=== PATIENT | female | born 1955 | race Caucasian/White ===

== ENCOUNTER 2023-05-30 12:35 | Emergency (ER) | payer MEDICARE, MEDICAID ==
[~2023-05-30] VITALS: Ht 154.9 cm; Wt 57.0 kg
[2023-05-30] MEDS: TETRACAINE 0.5% OPHTH DROPS 4ML LEFTEYE ONE (13:15)
[2023-05-30] MEDS: ACETAMINOPHEN 325MG TABLET PO ONE (15:07)
[2023-05-30] MEDS: ACETAZOLAMIDE 500MG ER CAPSULE PO ONE (15:40)
[2023-05-30] MEDS: BRIMONIDINE 0.2% OPHTH DROPS 5ML RIGHTEYE ONE (15:40)
[2023-05-30] MEDS: TIMOLOL MALEATE 0.5% OPHTH DROPS 5ML RIGHTEYE SCH (15:49)
[2023-05-30 17:45] LABS: BASOPHILS % 1.1 % (0.0-2.0); EOSINOPHILS % 1.6 % (0.0-5.0); HEMATOCRIT. 37.9 % (36.0-48.0); HEMOGLOBIN. 12.5 g/dL (12.0-16.0); LYMPHOCYTES % 31.8 % (20.0-50.0); MEAN CORPUSCULAR HEMOGLOBIN 28.8 pg (28.0-32.0); MEAN CORPUSCULAR HGB CONC 33.1 g/dL (31.0-37.0); MEAN CORPUSCULAR VOLUME 87.1 fL (81.0-99.0); MEAN PLATELET VOLUME 8.9 fl (7.4-10.4); MONOCYTES % 9.9 % (2.0-8.0); NEUTROPHILS % 55.6 % (40.0-76.0); PLATELET 229 x1000/uL (130-400); RED BLOOD CELL COUNT 4.35 mill/uL (4.2-5.4); RED CELL DISTRIBUTION WIDTH 14.4 % (11.6-14.6); WHITE BLOOD COUNT 5.7 x1000/uL (4.5-11.0)
[2023-05-30] MEDS ORDERED: ACET500C47 MT (17:49)
[2023-05-30] MEDS ORDERED: BRIM5DRO6 RIGHTEYE (17:49)
[2023-05-30] MEDS ORDERED: TIMO5DRO40 RIGHTEYE (17:49)
[2023-05-30 18:09] LABS: ALANINE AMINOTRANSFERASE 17 IU/L (10-49); ALBUMIN 4.6 g/dL (3.2-4.8); ASPARTATE AMINOTRANSFERASE 24 IU/L (<34); BILIRUBIN TOTAL 0.6 mg/dL (0.1-1.0); CALCIUM 9.3 mg/dL (8.7-10.4); CARBON DIOXIDE 26 mEq/L (21-32); CHLORIDE 105 mEq/L (98-107); CREATININE 0.8 mg/dL (0.6-1.0); GLUCOSE 184 mg/dL (70-105); POTASSIUM 4.1 mEq/L (3.5-5.1); PROTEIN TOTAL 7.9 g/dL (6.0-8.3); SODIUM 137 mEq/L (136-145); UREA NITROGEN BLOOD 13 mg/dL (9-23)
[2023-05-30 18:22] VITALS: BP 135/77; PULSE 82; RESP 18; TEMP 98.7
== END 2023-05-30 18:29 | disposition home or self-care (01) ==
LOC: ER 13:54 → CANBEDREQ 18:35
DX: H57.11 Ocular pain, right eye (principal); E11.9 Type 2 diabetes mellitus without complications; Z85.9 Personal history of malignant neoplasm, unspecified; Z98.890 Other specified postprocedural states
CPT/HCPCS: 36415; 70480; 80053; 82962; 85025; 99284